=== PATIENT | female | born 1995 | race Caucasian/White ===

== ENCOUNTER 2023-02-14 02:48 | Emergency (ER) | payer MEDICAID, SELFPAY ==
[2023-02-14] VITALS (9 sets, daily range): BP systolic 123–180; BP diastolic 58–116; PULSE 94–116; RESP 16–18; TEMP 36.9; O2SAT 90–99; BMI 56.5
--- NOTE | 2023-02-14 02:53 | ED_ITS ---
Documented by User: Juan Pablo Mayo MD 02/20/23 20:30 HPI - Weakness General: Chief complaint: General Medical Stated complaint: WEAKNESS Time Seen by Provider: 02/14/23 02:51 History of Present Illness: Ms. Jean-Baptiste is a 27-year-old lady presenting to the emergency department for generalized illness. She reports being at her baseline health and started huynh ving symptoms of what she thinks is an allergic reaction to something that she is unsure what. She reports starting to feel shortness of breath shaky, diarrhea, and vision disturbance. She woke up on the ground when EMS arrived. Currently endorses generalized shakiness and malaise as well as weakness. Intensity is moderate. No other specific changes in health, exacerbating, or alleviating factors identified. Onset (ago): hour(s) Duration: constant Severity: moderate Quality: aching Relieving factors: none Exacerbating factors: none Associated symptoms: Reports chills, headache(s), nausea, short of breath and vomiting Review of Systems General: Reports: 10 or more systems reviewed and unremarkable except in HPI and below Const: Reports: chills GI: Reports: nausea and vomiting Neuro: Reports: headache(s) PFSH ED PFSH: Medical History (Updated 02/14/23 @ 08:37 by Odilon Barnhart DO) No significant past medical history Surgical History (Updated 02/14/23 @ 05:15 by Juan Pablo Mayo MD) No significant past surgical history Physical Exam Const: COMMON NORMALS: alert GENERAL APPEARANCE: cooperative and well developed HENMT: COMMON NORMALS: normocephalic and atraumatic HEAD & SCALP: normocephalic and atraumatic THROAT: posterior oropharynx normal Eye: COMMON NORMALS: conjunctivae normal CONJUNCTIVA: Yes conjunctivae normal SCLERA: sclerae normal Neck/C-Spine: COMMON NORMALS: supple GENERAL: Yes trachea midline Resp: COMMON NORMALS: normal respiratory effort and clear to auscultation pablo aterally EFFORT & INSPECTION: Yes able to speak in complete sentences AUSCULTATION: clear to auscultation bilaterally Cardio: COMMON NORMALS: regular rate and regular rhythm RATE: regular rate RHYTHM: regular rhythm GI: COMMON NORMALS: Soft to palpation PALPATION: Yes Soft to palpation, Yes Tenderness to palpation present (GI), No Guarding due to palpation present (GI) and No Rigid due to palpation Extremity: GENERAL: Yes normal exam except as noted and No edema Neuro: COMMON NORMALS: moves all extremities SENSORIUM/ORIENTATION: Yes alert and No Orientation impaired Psych: COMMON NORMALS: mental status grossly normal and Normal thought process present THOUGHT PROCESS: Normal thought process present Course Vital Signs: Vital signs: Vital Signs Temperature 98.5 F 02/14/23 03:03 Pulse Rate 94 02/14/23 08:55 Respiratory Rate 16 02/14/23 06:42 Blood Pressure 149/85 02/14/23 08:55 Pulse Oximetry 95 02/14/23 08:55 Oxygen Delivery Me thod Room Air 02/14/23 03:40 MDM - Weakness Medical Records I reviewed the patient's medical records. Lab Data I reviewed the patient's lab results. 02/14/23 03:19 02/14/23 03:19 Radiology Impressions Abdomen/Pelvis CT 02/14/23 04:15 IMPRESSION: No acute findings. Chest X-Ray 02/14/23 04:15 IMPRESSION: No acute findings. Head CT 02/14/23 04:15 IMPRESSION: No acute intracranial abnormality. Laboratory Results WBC 23.7 10^3/uL (4.0-10.0) H 02/14/23 03:19 RBC 5.47 10^6/uL (4.1-5.3) H 02/14/23 03:19 Hgb 16.3 g/dL (11.5-15.3) H 02/14/23 03:19 Hct 50.0 % (37.0-47.0) H 02/14/23 03:19 MCV 91.4 fl (81-99) 02/14/23 03:19 MCH 29.8 pg (28.0-34.0) 02/14/23 03:19 MCHC 32.6 g/dL (30.0-36.0) 02/14/23 03:19 RDW 13.2 % (12.1-15.1) 02/14/23 03:19 Plt Count 311 10^3/cmm (130-400) 02/14/23 03:19 MPV 10.0 fL (7.4-10.4) 02/14/23 03:19 Neut % (Auto) 84.1 % 02/14/23 03:19 Lymph % (Auto) 8.6 % 02/14/23 03:19 Cross % (Auto) 6.4 % 02/14/23 03:19 Eos % (Auto) 0.2 % 02/14/23 03:19 Baso % (Auto) 0.2 % 02/14/23 03:19 Neut # (Auto) 19.93 10^3/uL (1.8-7.7) H 02/14/23 03:19 Lymph # (Auto) 2.0 10^3/uL (0.8-4.8) 02/14/23 03:19 Cross # (Auto) 1.5 10^3/uL (0.2-0.9) H 02/14/23 03:19 Eos # (Auto) 0.1 10^3/uL (0.0-0.8) 02/14/23 03:19 Baso # (Auto) 0.1 10^3/uL (0.0-0.1) 02/14/23 03:19 Nucleated RBC % (auto) 0 % 02/14/23 03:19 Nucleated RBCs # 0.0 /100WBC 02/14/23 03:19 Sodium 140 mmol/L (136-145) 02/14/23 03:19 Potassium 4.0 mmol/L (3.5-5.1) 02/14/23 03:19 Chloride 103 mmol/L (98-107) 02/14/23 03:19 Carbon Dioxide 22 mmol/L (22-29) 02/14/23 03:19 Anion Gap 19.0 (5-19) 02/14/23 03:19 BUN 18 mg/dL (6-20) 02/14/23 03:19 Creatinine 1.1 mg/dL (0.5-0.9) H 02/14/23 03:19 GFR Calculation 60.5 mL/min (90-130) L 02/14/23 03:19 Glucose 114 mg/dL (65-115) 02/14/23 03:19 Calculated Osmolality 293 mOsm/kg (285-295) 02/14/23 03:19 Calcium 9.4 mg/dL (8.5-10.5) 02/14/23 03:19 Magnesium 1.8 mg/dL (1.7-2.3) 02/14/23 03:19 Total Bilirubin 0.2 mg/dL (0.15-1.2) 02/14/23 03:19 AST 18 U/L (0-32) 02/14/23 03:19 ALT 27 U/L (0-33) 02/14/23 03:19 Alkaline Phosphatase 89 U/L (35-105) 02/14/23 03:19 C-Reactive Protein 5.0 mg/L (0.0-4.9) H 02/14/23 03:19 Total Protein 6.9 g/dL (6.6-8.7) 02/14/23 03:19 Albumin 4.2 g/dL (3.5-5.2) 02/14/23 03:19 Globulin 2.7 g/dL (1.3-4.6) 02/14/23 03:19 Procalcitonin 0.07 ng/mL (0-0.5) 02/14/23 03:19 TSH 5.71 uIU/mL (0.27-4.20) H 02/14/23 03:19 Free T4 1.52 ng/dL (0.82-1.77) 02/14/23 03:19 Prolactin 70.66 ng/mL (4.8-23.3) H 02/14/23 03:19 HCG, Qual Negative (Negative) 02/14/23 03:19 Urine Color Yellow (Yellow) 02/14/23 03:19 Urine Appearance Hazy (CLEAR) A 02/14/23 03:19 Urine pH 5 (5-7) 02/14/23 03:19 Ur Specific [place] 1.030 (1.005-1.030) 02/14/23 03:19 Urine Protein Trace (Negative) 02/14/23 03:19 Urine Glucose (UA) Norm (Normal) 02/14/23 03:19 Urine Ketones 1+ (Negative) H 02/14/23 03:19 Urine Blood Neg (Negative) 02/14/23 03:19 Urine Nitrate Negative (Negative) 02/14/23 03:19 Urine Bilirubin Neg (Negative) 02/14/23 03:19 Urine Urobilinogen Norm mg/dL (Negative) 02/14/23 03:19 Ur Leukocyte Esterase Negative (Negative) 02/14/23 03:19 Urine RBC 0-4 /hpf (0-2) H 02/14/23 03:19 Urine WBC 0-4 /hpf (0-5) H 02/14/23 03:19 Ur Squamous Epith Cells 5-10 /hpf (0-5) H 02/14/23 03:19 Calcium Oxalate Crystal 0-4 /hpf H 02/14/23 03:19 Amorphous Sediment Not Reportable 02/14/23 03:19 Urine Bacteria Trace /hpf (NONE) 02/14/23 03:19 Hyaline Casts >100 /lpf H 02/14/23 03:19 Urine Mucus 2+ /hpf 02/14/23 03:19 Influenza Type A Ag negative (Negative) 02/14/23 03:19 Influenza Type B Ag negative (Negative) 02/14/23 03:19 SARS-CoV-2 Ag (Rapid) negative (Negative) 02/14/23 03:19 Discharge Plan Discharge Patient Disposition: Home Clinical Impression: Leukocytosis Condition: Stable Prescriptions: New promethazine 25 mg tablet 25 mg PO Q6H PRN (Reason: Nausea vomiting) Qty: 20 0RF levofloxacin 750 mg tablet 750 mg PO DAILY 10 Days Qty: 7 0RF Discharge Orders: Discharge ED (Routine); Ordered 02/14/23 Ordered By: Odilon Barnhart Patient Instructions: Opioid Safety, Pain Management Activity Restrictions/Additional Instructions: Thank you for choosing [facility] for your healthcare needs today. Please realize this is an emergency room and that we are providing you with a medical screening exam and this may not be complete and all inclusive of all the testing and or work up that you may need to determine your ailment or severity of your illness. It is very important that you follow up as instructed or that you return to the Emergency Department should you have concerns or if your condition changes or worsens in any way. Your white count was elevated in the emergency room. Cultures were done. There is no sign of infection on your exam or on your urine. Your swabs for flu and COVID were negative. Blood cultures are pending we will start you on a course of antibiotics until they are resulted. We will also make arrangements for you to establish with a primary care physician to to recheck your white blood cell count within the next week. If you have worsening or changing symptoms return to the emergency room. Coding Level of Care Code ED [facility] Documented by User: Odilon Barnhart DO 02/14/23 09:02 HPI - Weakness General: Chief complaint: General Medical Stated complaint: WEAKNESS Time Seen by Provider: 02/14/23 02:51 PFS ED PFSH: Medical History (Updated 02/14/23 @ 08:37 by Odilon Barnhart DO) No significant past medical history Surgical History (Updated 02/14/23 @ 05:15 by Juan Pablo Mayo MD) No significant past surgical history Course Vital Signs: Vital signs: Vital Signs Temperature 98.5 F 02/14/23 03:03 Pulse Rate 94 02/14/23 08:55 Respiratory Rate 16 02/14/23 06:42 Blood Pressure 149/85 02/14/23 08:55 Pulse Oximetry 95 02/14/23 08:55 Oxygen Delivery Me thod Room Air 02/14/23 03:40 MDM - Weakness Medical Decision Making Patient care handoff received from Maria Esther continuation of ED evaluation. I personally saw and evaluated patient and reperformed caraballo portions of E/M. Patient asymptomatic at this time repeat exam is completely unremarkable she has no abdominal pain she denies any dysuria urgency or frequency her white count is markedly elevated look back to the time stamps on the labs and the prednisone she was given they were drawn normal simultaneously suspect the white count may be related to what ever reaction she had her prolactin is elevated but I am not finding any source of infection her chest exam is normal. Urine is normal. Flu and COVID swabs are negative. Chest x-ray CT abdomen and pelvis UA all ne gative. We will discharge her home blood cultures were drawn before discharge set her up to follow-up with primary care. Dr. Coon was initially worried that she had an allergic reaction of sorts when she arrived. There is a complaint of hives and diarrhea as well as swelling. This is all resolved she is feeling much better. We will also get her set up to see a primary care doctor to further evaluate this and follow-up on her leukocytosis. Lab Data 02/14/23 03:19 02/14/23 03:19 Radiology Impressions Abdomen/Pelvis CT 02/14/23 04:15 IMPRESSION: No acute findings. Chest X-Ray 02/14/23 04:15 IMPRESSION: No acute findings. Head CT 02/14/23 04:15 IMPRESSION: No acute intracranial abnormality. Laboratory Results WBC 23.7 10^3/uL (4.0-10.0) H 02/14/23 03:19 RBC 5.47 10^6/uL (4.1-5.3) H 02/14/23 03:19 Hgb 16.3 g/dL (11.5-15.3) H 02/14/23 03:19 Hct 50.0 % (37.0-47.0) H 02/14/23 03:19 MCV 91.4 fl (81-99) 02/14/23 03:19 MCH 29.8 pg (28.0-34.0) 02/14/23 03:19 MCHC 32.6 g/dL (30.0-36.0) 02/14/23 03:19 RDW 13.2 % (12.1-15.1) 02/14/23 03:19 Plt Count 311 10^3/cmm (130-400) 02/14/23 03:19 MPV 10.0 fL (7.4-10.4) 02/14/23 03:19 Neut % (Auto) 84.1 % 02/14/23 03:19 Lymph % (Auto) 8.6 % 02/14/23 03:19 Cross % (Auto) 6.4 % 02/14/23 03:19 Eos % (Auto) 0.2 % 02/14/23 03:19 Baso % (Auto) 0.2 % 02/14/23 03:19 Neut # (Auto) 19.93 10^3/uL (1.8-7.7) H 02/14/23 03:19 Lymph # (Auto) 2.0 10^3/uL (0.8-4.8) 02/14/23 03:19 Cross # (Auto) 1.5 10^3/uL (0.2-0.9) H 02/14/23 03:19 Eos # (Auto) 0.1 10^3/uL (0.0-0.8) 02/14/23 03:19 Baso # (Auto) 0.1 10^3/uL (0.0-0.1) 02/14/23 03:19 Nucleated RBC % (auto) 0 % 02/14/23 03:19 Nucleated RBCs # 0.0 /100WBC 02/14/23 03:19 Sodium 140 mmol/L (136-145) 02/14/23 03:19 Potassium 4.0 mmol/L (3.5-5.1) 02/14/23 03:19 Chloride 103 mmol/L (98-107) 02/14/23 03:19 Carbon Dioxide 22 mmol/L (22-29) 02/14/23 03:19 Anion Gap 19.0 (5-19) 02/14/23 03:19 BUN 18 mg/dL (6-20) 02/14/23 03:19 Creatinine 1.1 mg/dL (0.5-0.9) H 02/14/23 03:19 GFR Calculation 60.5 mL/min (90-130) L 02/14/23 03:19 Glucose 114 mg/dL (65-115) 02/14/23 03:19 Calculated Osmolality 293 mOsm/kg (285-295) 02/14/23 03:19 Calcium 9.4 mg/dL (8.5-10.5) 02/14/23 03:19 Magnesium 1.8 mg/dL (1.7-2.3) 02/14/23 03:19 Total Bilirubin 0.2 mg/dL (0.15-1.2) 02/14/23 03:19 AST 18 U/L (0-32) 02/14/23 03:19 ALT 27 U/L (0-33) 02/14/23 03:19 Alkaline Phosphatase 89 U/L (35-105) 02/14/23 03:19 C-Reactive Protein 5.0 mg/L (0.0-4.9) H 02/14/23 03:19 Total Protein 6.9 g/dL (6.6-8.7) 02/14/23 03:19 Albumin 4.2 g/dL (3.5-5.2) 02/14/23 03:19 Globulin 2.7 g/dL (1.3-4.6) 02/14/23 03:19 Procalcitonin 0.07 ng/mL (0-0.5) 02/14/23 03:19 TSH 5.71 uIU/mL (0.27-4.20) H 02/14/23 03:19 Free T4 1.52 ng/dL (0.82-1.77) 02/14/23 03:19 Prolactin 70.66 ng/mL (4.8-23.3) H 02/14/23 03:19 HCG, Qual Negative (Negative) 02/14/23 03:19 Urine Color Yellow (Yellow) 02/14/23 03:19 Urine Appearance Hazy (CLEAR) A 02/14/23 03:19 Urine pH 5 (5-7) 02/14/23 03:19 Ur Specific [place] 1.030 (1.005-1.030) 02/14/23 03:19 Urine Protein Trace (Negative) 02/14/23 03:19 Urine Glucose (UA) Norm (Normal) 02/14/23 03:19 Urine Ketones 1+ (Negative) H 02/14/23 03:19 Urine Blood Neg (Negative) 02/14/23 03:19 Urine Nitrate Negative (Negative) 02/14/23 03:19 Urine Bilirubin Neg (Negative) 02/14/23 03:19 Urine Urobilinogen Norm mg/dL (Negative) 02/14/23 03:19 Ur Leukocyte Esterase Negative (Negative) 02/14/23 03:19 Urine RBC 0-4 /hpf (0-2) H 02/14/23 03:19 Urine WBC 0-4 /hpf (0-5) H 02/14/23 03:19 Ur Squamous Epith Cells 5-10 /hpf (0-5) H 02/14/23 03:19 Calcium Oxalate Crystal 0-4 /hpf H 02/14/23 03:19 Amorphous Sediment Not Reportable 02/14/23 03:19 Urine Bacteria Trace /hpf (NONE) 02/14/23 03:19 Hyaline Casts >100 /lpf H 02/14/23 03:19 Urine Mucus 2+ /hpf 02/14/23 03:19 Influenza Type A Ag negative (Negative) 02/14/23 03:19 Influenza Type B Ag negative (Negative) 02/14/23 03:19 SARS-CoV-2 Ag (Rapid) negative (Negative) 02/14/23 03:19 Discharge Plan Discharge Patient Disposition: Home Clinical Impression: Leukocytosis Condition: Stable Prescriptions: New promethazine 25 mg tablet 25 mg PO Q6H PRN (Reason: Nausea vomiting) Qty: 20 0RF levofloxacin 750 mg tablet 750 mg PO DAILY 10 Days Qty: 7 0RF Discharge Orders: Discharge ED (Routine); Ordered 02/14/23 Ordered By: Odilon Barnhart Patient Instructions: Opioid Safety, Pain Management Activity Restrictions/Additional Instructions: Thank you for choosing [facility] for your healthcare needs today. Please realize this is an emergency room and that we are providing you with a medical screening exam and this may not be complete and all inclusive of all the testing and or work up that you may need to determine your ailment or severity of your illness. It is very important that you follow up as instructed or that you return to the Emergency Department should you have concerns or if your c ondition changes or worsens in any way. Your white count was elevated in the emergency room. Cultures were done. There is no sign of infection on your exam or on your urine. Your swabs for flu and COVID were negative. Blood cultures are pending we will start you on a course of antibiotics until they are resulted. We will also make arrangements for you to establish with a primary care physician to to recheck your white blood cell count within the next week. If you have worsening or changing symptoms return to the emergency room. Coding Level of Care Code ED [facility]
[2023-02-14 03:27] LABS: Basophils # 0.1 10^3/uL (0.0-0.1); Basophils % 0.2 %; Eosinophils # 0.1 10^3/uL (0.0-0.8); Eosinophils % 0.2 %; Hemoglobin 16.3 g/dL (11.5-15.3); Lymphocytes % 8.6 %; Mean Corpuscular HGB Conc 32.6 g/dL (30.0-36.0); Mean Corpuscular Hemoglobin 29.8 pg (28.0-34.0); Mean Corpuscular Volume 91.4 fl (81-99); Monocytes # 1.5 10^3/uL (0.2-0.9); Monocytes % 6.4 %; Neutrophils # 19.93 10^3/uL (1.8-7.7); Neutrophils % 84.1 %; Nucleated Red Blood Cells % 0 %; Platelet Count 311 10^3/cmm (130-400); Red Blood Count 5.47 10^6/uL (4.1-5.3); Red Cell Distribution Width 13.2 % (12.1-15.1); White Blood Count 23.7 10^3/uL (4.0-10.0)
[2023-02-14 03:37] LABS: HCG, Serum Qual Negative (Negative)
[2023-02-14] MEDS: sodium chloride 0.9% 1,000 ML 999 ML IV (03:39)
[2023-02-14] MEDS: famotidine 20 mg/2 mL INJ 40 MG IVP (03:40)
[2023-02-14] MEDS: diphenhydrAMINE 50 mg/mL SDV 1mL 25 MG IVP (03:40)
[2023-02-14 03:44] LABS: Influenza A by IFA negative (Negative); Influenza B by IFA negative (Negative)
[2023-02-14 03:45] LABS: SARS Covid-2 Antigen negative (Negative)
[2023-02-14 03:52] LABS: Procalcitonin 0.07 ng/mL (0-0.5); Thyroid Stimulating Hormone 5.71 uIU/mL (0.27-4.20)
[2023-02-14 04:04] LABS: Alanine Aminotransferase 27 U/L (0-33); Albumin Level 4.2 g/dL (3.5-5.2); Alkaline Phosphatase 89 U/L (35-105); Aspartate Amino Transferase 18 U/L (0-32); Blood Urea Nitrogen 18 mg/dL (6-20); Calcium 9.4 mg/dL (8.5-10.5); Carbon Dioxide 22 mmol/L (22-29); Chloride 103 mmol/L (98-107); Globulin 2.7 g/dL (1.3-4.6); Glomerular Filtration Rate 60.5 mL/min (90-130); Glucose 114 mg/dL (65-115); Magnesium 1.8 mg/dL (1.7-2.3); Osmolality Calculated 293 mOsm/kg (285-295); Sodium 140 mmol/L (136-145); Total Bilirubin 0.2 mg/dL (0.15-1.2); Total Protein 6.9 g/dL (6.6-8.7)
--- NOTE | 2023-02-14 04:15 | XRR_ITS ---
PROCEDURE INFORMATION: Exam: XR Chest Exam date and time: 02/14/2023 4:32 AM Age: 27 years old Clinical indication: Shortness of breath; Patient HX: C/O SOB TECHNIQUE: Imaging protocol: Radiologic exam of the chest. Views: 1 view. COMPARISON: No relevant prior studies available. FINDINGS: Lungs: Unremarkable. No consolidation. Pleural spaces: Unremarkable. No pleural effusion. No pneumothorax. Heart/Mediastinum: Unremarkable. No cardiomegaly. Bones/joints: Unremarkable. XR/XR chest 1V portable [id number] IMPRESSION: No acute findings.
--- NOTE | 2023-02-14 04:15 | CTR_ITS ---
PROCEDURE INFORMATION: Exam: CT Abdomen And Pelvis With Contrast Exam date and time: 02/14/2023 4:41 AM Age: 27 years old Clinical indication: Abdominal pain; Generalized; Patient HX: C/O diffuse abd pain with diarrhea. ; Additional info: Abd pain, n/v/d TECHNIQUE: Imaging protocol: Computed tomography of the abdomen and pelvis with contrast. Radiation optimization: All CT scans at this facility use at least one of these dose optimization techniques: automated exposure control; mA and/or kV adjustment per patient size (includes targeted exams where dose is matched to clinical indication); or iterative reconstruction. Contrast material: OMNI 350; Contrast volume: 100 ml; Contrast route: INTRAVENOUS (IV); REPORTING DATA: Count of CT and Cardiac NM exams in prior 12 months: This patient has received [address] and 0 known cardiac nuclear medicine studies in the 12 months prior to the current study. COMPARISON: CR (CHEST, ) 02/14/2023 4:32 AM RADIATION DOSE METRICS: Total DLP (mGy-cm): 1280.53 FINDINGS: Liver: Normal. No mass. Gallbladder and bile ducts: Normal. No calcified stones. No ductal dilation. Pancreas: Normal. No ductal dilation. Spleen: Normal. No splenomegaly. Adrenal glands: Normal. No mass. Kidneys and ureters: Normal. No hydronephrosis. Stomach and bowel: Unremarkable. No obstruction. No mucosal thickening. Appendix: No evidence of appendicitis. Intraperitoneal space: Unremarkable. No free air. No significant fluid collection. Vasculature: Unremarkable. No abdominal aortic aneurysm. Lymph nodes: Unremarkable. No enlarged lymph nodes. Urinary bladder: Unremarkable as visualized. Reproductive: Unremarkable as visualized. Bones/joints: Unremarkable. No acute fracture. Soft tissues: Unremarkable. CT/CT abdomen pelvis w con* [id number] IMPRESSION: No acute findings.
--- NOTE | 2023-02-14 04:15 | CTR_ITS ---
PROCEDURE INFORMATION: Exam: CT Head Without Contrast Exam date and time: 02/14/2023 4:37 AM Age: 27 years old Clinical indication: Syncope and collapse; Patient HX: Syncopal episode. C/O general weakness. ; Additional info: Syncope, visual disturbance TECHNIQUE: Imaging protocol: Computed tomography of the head without contrast. Radiation optimization: All CT scans at this facility use at least one of these dose optimization techniques: automated exposure control; mA and/or kV adjustment per patient size (includes targeted exams where dose is matched to clinical indication); or iterative reconstruction. REPORTING DATA: Count of CT and Cardiac NM exams in prior 12 months: This patient has received [address] and 0 known cardiac nuclear medicine studies in the 12 months prior to the current study. COMPARISON: No relevant prior studies available. RADIATION DOSE METRICS: Total DLP (mGy-cm): 970.38 FINDINGS: Brain: No acute appearing brain parenchymal abnormality. No intracranial hemorrhage. No extraaxial fluid collections. Cerebral ventricles: No hydrocephalus. Paranasal sinuses: Chronic appearing sinus disease involving the left maxillary sinus and sphenoid sinus. Mastoid air cells: The visualized mastoid air cells are aerated. Bones/joints: No calvarial fracture. Soft tissues: No acute soft tissue abnormality. CT/CT head wo con* [id number] IMPRESSION: No acute intracranial abnormality.
[2023-02-14 04:24] LABS: Add Urine Microscopic? YES; Bilirubin Urine Neg (Negative); Blood Urine Neg (Negative); Glucose Urine UA Norm (Normal); Ketones Urine 1+ (Negative); Leukocyte Esterase Urine Negative (Negative); Nitrate Urine Negative (Negative); Protein Urine Trace (Negative); Urine Appearance Hazy (CLEAR); Urine Color Yellow (Yellow); Urobilinogen Urine Norm (Negative); pH Urine 5 (5-7)
[2023-02-14 04:25] LABS: Add Urine Culture? No; Bacteria Urine TRACE /hpf; Calcium Oxalate Crystals Urine 0-4 /hpf; Hyaline Casts Urine >100 /lpf; Mucus Urine 2+ /hpf; RBC Urine 0-4 /hpf (0-2); WBC Urine 0-4 /hpf (0-5)
[2023-02-14 04:44] LABS: Free T4 Free Thyroxine 1.52 ng/dL (0.82-1.77)
[2023-02-14] MEDS: iohexol 350 mg/mL 500 mL Btl (per mL) IV (04:47)
[2023-02-14 05:56] LABS: Prolactin 70.66 ng/mL (4.8-23.3)
--- NOTE | 2023-02-14 11:08 | DCPLANNER ---
clinical pharmacy manager had message to speak with patient about getting established with a primary care physician. clinical pharmacy manager called patient no answer at this time.
== END 2023-02-14 08:56 | disposition home or self-care (01) ==
PROVIDERS: Emergency Medicine; Emergency Provider Family Medicine
DX: D72.829 Elevated white blood cell count, unspecified (principal)
CPT/HCPCS: 70450; 71045; 74177; 80053; 81001; 83735; 84145; 84146; 84439; 84443; 84703; 85025; 86140; 87040; 87426; 87804; 96374; 96375; 99285; J1200; J2930; J3490; J7030; Q9967